=== PATIENT | male | born 1995 | race Caucasian/White ===

== ENCOUNTER 2016-02-27 01:34 | Emergency (ER) ==
[2016-02-27 01:37] VITALS: BP 130/72
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
[2016-02-27] MEDS ORDERED: NORCO-5 PO ONE (02:05)
--- NOTE | 2016-02-27 11:36 | Diag Imaging Result Document ---
PROCEDURE NAME: HAND COMPLETE RIGHT - 02/27/2016 PLAIN RADIOGRAPHS OF THE RIGHT HAND, 3 VIEWS: COMPARISON: None available. FINDINGS: There are fractures of the shaft of the 4th and 5th metacarpals with palmar angulation of the distal fragments. No other discrete fracture, dislocation, or significant intrinsic osseous lesion is appreciated. There is soft tissue edema at the dorsum of the hand. IMPRESSION: Fractures of the 4th and 5th metacarpals as described.
== END 2016-02-27 02:58 | disposition home or self-care (01) ==
LOC: ED 01:34
DX: S62.354A Nondisplaced fracture of shaft of fourth metacarpal bone, right hand, initial encounter for closed fracture (principal); S60.511A Abrasion of right hand, initial encounter; S62.356A Nondisplaced fracture of shaft of fifth metacarpal bone, right hand, initial encounter for closed fracture; M79.89 Other specified soft tissue disorders; M89.8X4 Other specified disorders of bone, hand; M79.1 Myalgia; M62.81 Muscle weakness (generalized); W20.8XXA Other cause of strike by thrown, projected or falling object, initial encounter
CPT/HCPCS: 99283